=== PATIENT | female | born 1945 | race Caucasian/White ===

== ENCOUNTER 2020-03-15 13:43 | Outpatient (CLI) | payer MEDICARE ==
--- NOTE | 2020-03-15 17:16 | MRI ---
MRI CERVICAL SPINE WITHOUT CONTRAST: 03/15/20 INDICATIONS: Cervical radiculopathy. FINDINGS: Cervical vertebrae maintain height. Moderate degenerative changes are seen at the C5-6 and C6-7 level s. There is loss of disc space at both of these levels with anterior spurring and posterior spondylos is. There is a mild anterolisthesis at C4-5 measured at 3 to 4 mm. Vertebral body signal is normally maintained. There is increased STIR signal consistent with edema se en within the facets on the right at C4-5 and C5-6. This probably relates to degenerative facet knutson e and hypertrophy. C2-3: No significant disc bulge or spondylosis. C3-4: Mild disc bulge and spondylosis. No central canal or foraminal stenosis. C4-5: Anterolisthesis as noted above with posterior disc bulge and spondylosis which abuts the anteri or cord. No significant foraminal stenosis apparent. C5-6: Loss of disc space with posterior disc bulge and spondylosis mildly compressing the anterior co rd. Evidence of bilateral foraminal stenosis due to hypertrophic change. C6-7: Posterior disc bulge and spondylosis abuts the anterior cord. Mild foraminal narrowing. Cord signal is difficult to evaluate due to artifact. No definite myelomalacia. IMPRESSION: Degenerative changes in the mid and lower cervical spine most prominent at C4-5, C5-6 and C6-7. Cent ral canal and foraminal stenosis at these levels as described above. POS: [facility]
== END 2020-03-15 13:44 | disposition home or self-care (01) ==
LOC: BICMRI 13:43
PROVIDERS: ATTEND Anesthesiology Pain Medicine
DX: M47.22 Other spondylosis with radiculopathy, cervical region (principal); M48.02 Spinal stenosis, cervical region
CPT/HCPCS: 72141

== ENCOUNTER 2020-05-15 13:37 | Outpatient (CLI) | payer MEDICARE | END 2020-05-15 13:38 | disposition home or self-care (01) | LOC: ULT 13:37 | PROVIDERS: ATTEND Family Medicine | DX: M79.89 Other specified soft tissue disorders (principal); M19.031 Primary osteoarthritis, right wrist; M25.511 Pain in right shoulder; M25.531 Pain in right wrist; M79.621 Pain in right upper arm | CPT/HCPCS: 93923 ==

== ENCOUNTER 2020-11-10 11:16 | Outpatient (CLI) | payer MEDICARE ==
[~2020-11-10 11:16] MED LIST: Iopamidol 370 76% 100 ML VIAL ONE
== END 2020-11-10 11:17 | disposition home or self-care (01) ==
LOC: CT 11:16
PROVIDERS: ATTEND Family Medicine
DX: R06.09 Other forms of dyspnea (principal); R04.2 Hemoptysis; Z51.81 Encounter for therapeutic drug level monitoring; I26.99 Other pulmonary embolism without acute cor pulmonale; R59.0 Localized enlarged lymph nodes; J84.9 Interstitial pulmonary disease, unspecified; I08.1 Rheumatic disorders of both mitral and tricuspid valves; Z98.82 Breast implant status; Z79.899 Other long term (current) drug therapy
CPT/HCPCS: 71275; 82565; 93306

== ENCOUNTER 2020-11-10 14:51 | Emergency (ER) | payer MEDICARE ==
[2020-11-10 16:43] LABS: #Basophils 0.1 thou/uL (0.0-0.2); #Eosinphils 0.4 thou/uL (0.0-0.7); #Lymphocytes 3.2 thou/uL (1.20-3.40); #Monocytes 0.7 thou/uL (0.11-0.59); #Neutrophils 13.6 thou/uL (1.40-6.50); %Basophils 0.3 % (0.0-1.0); %Eosinophils 2.3 % (0.0-10.0); %Lymphocytes 17.8 % (21.0-51.0); %Monocytes 3.9 % (0.0-10.0); %Neutrophils 75.7 % (42.0-75.0); Hemoglobin 11.2 g/dL (12.0-16.0); Mean Corpuscular HGB CONC 32.3 g/dL (32.0-36.0); Mean Corpuscular Hemoglobin 36.6 pg (27.0-31.0); Mean Platelet Volume 8.7 fL (7.4-10.4); Platelet Count 332 thou/uL (130-400); RBC Distribution Width 19.5 % (11.5-14.5); Red Blood Cell (RBC) Count 3.07 mill/uL (4.20-5.40)
[2020-11-10 17:04] LABS: ALT (SGPT) 14 U/L (8-55); AST (SGOT) 12 U/L (5-34); Albumin 3.8 g/dL (3.4-4.8); Alkaline Phosphatase 150 U/L (40-110); Anion Gap 13 mmol/L (10-20); BUN (Urea Nitrogen) 20 mg/dL (9.8-20.1); Bilirubin, Total 0.3 mg/dL (0.2-1.2); Calc. Creatinine Clearance 0 mL/min (70-130); Calcium 9.3 mg/dL (7.8-10.44); Carbon Dioxide 25 mmol/L (23-31); Chloride 106 mmol/L (98-107); Globulin 2.9 g/dL (2.4-3.5); Glucose 117 mg/dL (83-110); Potassium 5.6 mmol/L (3.5-5.1); Protein, Total 6.7 g/dL (5.8-8.1); Sodium 138 mmol/L (136-145)
[2020-11-10 19:55] LABS: Anion Gap 14 mmol/L (10-20); BUN (Urea Nitrogen) 17 mg/dL (9.8-20.1); Calc. Creatinine Clearance 0 mL/min (70-130); Carbon Dioxide 23 mmol/L (23-31); Chloride 107 mmol/L (98-107); Glucose 101 mg/dL (83-110); Potassium 4.7 mmol/L (3.5-5.1); Sodium 139 mmol/L (136-145)
[2020-11-10] MEDS ORDERED: Apixaban 5 MG TAB PO SCH (21:00)
== END 2020-11-10 21:50 | disposition home or self-care (01) ==
LOC: ERS 14:51
DX: I26.99 Other pulmonary embolism without acute cor pulmonale (principal); J02.0 Streptococcal pharyngitis; I10 Essential (primary) hypertension; E03.9 Hypothyroidism, unspecified; E66.9 Obesity, unspecified; K58.9 Irritable bowel syndrome, unspecified; Z68.45 Body mass index [BMI] 70 or greater, adult; Z87.891 Personal history of nicotine dependence; Z79.82 Long term (current) use of aspirin; Z79.899 Other long term (current) drug therapy; R06.09 Other forms of dyspnea; R04.2 Hemoptysis; Z51.81 Encounter for therapeutic drug level monitoring; R59.0 Localized enlarged lymph nodes; J84.9 Interstitial pulmonary disease, unspecified; Z98.82 Breast implant status
CPT/HCPCS: 36415; 71275; 80053; 82565; 83880; 84484; 85025; 93306; 93970; Q9967

== ENCOUNTER 2021-03-29 14:14 | Outpatient (CLI) | payer MEDICARE ==
[2021-03-29 15:41] LABS: Bilirubin Neg (Negative); Blood, Urine Negative (Negative); Clarity Clear (Clear); Glucose, Urine (Dipstick) Normal (Negative); Ketone, Urine Negative (Negative); Leukocyte Negative (Negative); Nitrite Negative (Negative); Protein, Urine (Dipstick) Negative (Neg-Trace); Urobilinogen Normal mg/dL (Less than 2)
[2021-03-29 15:54] LABS: PTT 24.5 sec (22.0-33.0); Prothrombin Time 11.2 sec (9.5-12.1)
[2021-03-29 15:58] LABS: #Eosinphils 0.6 10x3/uL (0.0-0.5); #Monocytes 0.2 10x3/uL (0.0-1.1); #Neutrophils 8.7 10x3/uL (1.5-8.4); %Basophils 0.2 % (0.0-2.0); %Eosinophils 4.5 % (0.0-6.0); %Lymphocytes 20.9 % (18.0-47.0); %Monocytes 1.9 % (0.0-10.0); %Neutrophils 71.6 % (40.0-75.0); Hemoglobin 11.1 g/dL (12.0-15.5); Mean Corpuscular HGB CONC 30.3 g/dL (32.0-36.0); Mean Corpuscular Hemoglobin 32.3 pg (27.0-33.0); Mean Corpuscular Volume 106.4 fl (81.6-98.3); Mean Platelet Volume 10.8 fl (7.4-10.4); Platelet Count 323 10x3/uL (150-450); RBC Distribution Width 18.7 % (11.5-14.5); Red Blood Cell (RBC) Count 3.44 10x6/uL (3.90-5.03); White Blood Cell (WBC) Count 12.1 10x3/uL (3.5-10.5)
[2021-03-29 16:06] LABS: Anion Gap 16 mmol/L (10-20); BUN (Urea Nitrogen) 22 mg/dL (9.8-20.1); Calc. Creatinine Clearance 0 mL/min (70-130); Calcium 8.9 mg/dL (7.8-10.44); Carbon Dioxide 24 mmol/L (23-31); Chloride 107 mmol/L (98-107); Glucose 77 mg/dL (83-110); Potassium 4.2 mmol/L (3.5-5.1); Sodium 143 mmol/L (136-145)
[2021-03-30 13:49] LABS: SARS-CoV-2 PCR by NAA Not Detected (NotDetected)
== END 2021-03-29 14:15 | disposition home or self-care (01) ==
LOC: LABBT 14:14
PROVIDERS: ATTEND Orthopaedic Surgery Hand Surgery
DX: Z01.818 Encounter for other preprocedural examination (principal); G56.01 Carpal tunnel syndrome, right upper limb; M19.041 Primary osteoarthritis, right hand; G56.11 Other lesions of median nerve, right upper limb; Z20.822 Contact with and (suspected) exposure to COVID-19
CPT/HCPCS: 80048; 81003; 85025; 85610; 85730; 93005; U0003; U0005; 93010

== ENCOUNTER 2021-04-03 08:21 | Day surgery (SDC) | payer MEDICARE ==
[2021-03-27 13:39] VITALS: BMI 32.8
[2021-04-03] MEDS ORDERED: Fentanyl 100 MCG/2 ML VIAL ONE ×2 (10:41→12:34)
[2021-04-03] MEDS ORDERED: Midazolam HCl 2 mg/2 ml Vial ONE ×2 (10:41→13:46)
[2021-04-03] MEDS ORDERED: Bupivacaine PF 0.5% 30 ML VIAL ONE ×2 (11:28→12:16)
[2021-04-03] MEDS ORDERED: Bacitracin Zinc Ointment 30 gm TUBE ONE (12:16)
[2021-04-03] MEDS ORDERED: Betamet Acet/Betamet Na Ph 30 MG/5 ML VIAL ONE (12:16)
[2021-04-03] MEDS ORDERED: Neomycin-Polymyxin 1 ML AMP ONE (12:16)
[2021-04-03] MEDS ORDERED: ceFAZolin 2 GM/DEX 5% 100 ML BAG ONE (12:40)
[2021-04-03] MEDS ORDERED: Clindamycin/D5W 900 mg/50 ml Premix Bag ONE (12:46)
[2021-04-03] MEDS ORDERED: Bupivacaine HCl 0.5%/Epinephrine 1:200,000/PF 30 ml Vial ONE (13:00)
[2021-04-03] MEDS ORDERED: Dexamethasone 20 MG/5 ML VIAL ONE (13:00)
[2021-04-03] MEDS ORDERED: Ondansetron PF 4 MG/2 ML Vial ONE (13:00)
[2021-04-03] MEDS ORDERED: PROPOFOL 200 MG/20 ML VIAL ONE (13:00)
[2021-04-03] MEDS ORDERED: Lidocaine 1% PF 5 ML VIAL ONE (13:00)
[2021-04-03] MEDS ORDERED: Glycopyrrolate 0.2 MG/ML 5 ML SYRINGE ONE (13:00)
[2021-04-03] MEDS ORDERED: Rocuronium Bromide 10 MG/ML (10ML VIAL) ONE (13:00)
[2021-04-03] MEDS ORDERED: Phenylephrine 10 MG/ML VIAL ONE (13:49)
== END 2021-04-03 19:20 | disposition home or self-care (01) ==
LOC: SDC 08:21
PROVIDERS: ATTEND Orthopaedic Surgery Hand Surgery
PROC: 01N50ZZ Release Median Nerve, Open Approach (ICD-10-PCS; principal; 2021-04-03)
PROC: 01N50ZZ Release Median Nerve, Open Approach (ICD-10-PCS; 2021-04-03)
PROC: 0RRU0JZ Replacement of Right Metacarpophalangeal Joint with Synthetic Substitute, Open Approach (ICD-10-PCS; 2021-04-03)
PROC: 0RRU0JZ Replacement of Right Metacarpophalangeal Joint with Synthetic Substitute, Open Approach (ICD-10-PCS; 2021-04-03)
PROC: 3E0T3BZ Introduction of Anesthetic Agent into Peripheral Nerves and Plexi, Percutaneous Approach (ICD-10-PCS; 2021-04-03)
DX: M19.041 Primary osteoarthritis, right hand (principal); S63.210A Subluxation of metacarpophalangeal joint of right index finger, initial encounter; G56.11 Other lesions of median nerve, right upper limb; G56.01 Carpal tunnel syndrome, right upper limb; I10 Essential (primary) hypertension; E78.5 Hyperlipidemia, unspecified; E03.9 Hypothyroidism, unspecified; M06.9 Rheumatoid arthritis, unspecified; B37.0 Candidal stomatitis; Z79.01 Long term (current) use of anticoagulants; Z79.52 Long term (current) use of systemic steroids; Z79.82 Long term (current) use of aspirin; Z79.899 Other long term (current) drug therapy; Z88.1 Allergy status to other antibiotic agents; Z91.048 Other nonmedicinal substance allergy status
CPT/HCPCS: 76000; C1776; C1889; J0702; J2250; J2370; J3010; J3490; S0020